=== PATIENT | male | born 1955 | race Caucasian/White ===

== ENCOUNTER → 2022-11-17 12:39 | Outpatient (CLI) | payer MEDICARE, SELFPAY ==
--- NOTE | 2022-11-17 12:42 | DI.RAD.S_ITS ---
PROCEDURE: XR KNEE LT 3V INDICATIONS: left knee pain TECHNIQUE: 3 views of the knee were acquired. COMPARISON: None. FINDINGS: Bones: No fractures or dislocations. No suspicious bony lesions. Severe left knee tricompartmental osteoarthritis with osseous hypertrophy and joint space narrowing. Soft tissues: No joint effusion. No suspicious soft tissue calcifications. IMPRESSION: Severe left knee tricompartmental osteoarthritis. Dictated by: Helen Burton MD, PhD on 11/17/2022 at 15:03 Approved by: Helen Burton MD, PhD on 11/17/2022 at 15:03
== END ==
PROVIDERS: Referring Provider Anesthesiology; Visit Provider Anesthesiology
DX: M17.12 Unilateral primary osteoarthritis, left knee (principal); M25.562 Pain in left knee; G89.29 Other chronic pain
CPT/HCPCS: 73562; 99214

== ENCOUNTER → 2023-02-15 11:04 | Outpatient (CLI) | payer OTHER, SELFPAY ==
--- NOTE | 2023-02-15 | DI.RAD.S_ITS ---
PROCEDURE: XR LUMBAR SPINE 2-3V INDICATIONS: BACK PAIN TECHNIQUE: 3 views of the lumbar spine were acquired. COMPARISON: None. FINDINGS: Bones: 5 [id number] vertebrae are present. No acute fracture or traumatic subluxation. Moderate degenerative changes at L5-S1 with endplate sclerosis, osteophytosis and facet arthropathy. Remainder of the spine demonstrates mild multilevel degenerative changes. Grade 1 anterolisthesis of L4 on L5 of approximately 3 mm. No suspicious bony lesions. Soft tissues: Overlying bowel gas pattern is normal. No suspicious soft tissue calcifications. Scattered surgical clips. IMPRESSION: 1. No acute bony abnormality. 2. Multilevel degenerative changes of the spine, moderate at L5-S1. Dictated by: Robb Oh M.D. on 02/15/2023 at 17:38 Approved by: Robb Oh M.D. on 02/15/2023 at 17:40
== END ==
LOC: RAD 11:07
PROVIDERS: Referring Provider Internal Medicine Cardiovascular Disease; Visit Provider Internal Medicine Cardiovascular Disease
DX: M47.817 Spondylosis without myelopathy or radiculopathy, lumbosacral region (principal); M47.816 Spondylosis without myelopathy or radiculopathy, lumbar region; M54.50 Low back pain, unspecified
CPT/HCPCS: 72100

== ENCOUNTER → 2024-10-18 09:33 | Outpatient (CLI) | payer MEDICARE, SELFPAY ==
[2024-10-18 10:58] LABS: Alanine Aminotransferase 13 IU/L (<50); Albumin 3.8 g/dL (3.5-5.0); Albumin Globulin Ratio 1.2 (1.0-2.8); Alkaline Phosphatase 128 U/L (38-126); Blood Urea Nitrogen 12 mg/dL (9-20); Calcium 8.7 mg/dL (8.4-10.2); Carbon Dioxide 27 mmol/L (22-32); Chloride 104 mmol/L (98-107); Cholesterol 152 mg/dL (140-199); Estimated Glomerular Filt Rate > 60 mL/min (>60); Globulin 3.1 g/dL (1.7-4.1); Glucose 90 mg/dL (70-99); HDL Cholesterol 52 mg/dL (40-60); HEMOLYSIS < 15 (0-50); Sodium 140 mmol/L (137-145); Total Protein 6.9 g/dL (6.3-8.2); Triglycerides 69 mg/dL (35-150)
[2024-10-18 11:05] LABS: Potassium 4.1 mmol/L (3.4-5.1)
== END ==
PROVIDERS: PCP Internal Medicine; Referring Provider Internal Medicine; Visit Provider Internal Medicine
DX: I10 Essential (primary) hypertension (principal); Z12.5 Encounter for screening for malignant neoplasm of prostate; E78.2 Mixed hyperlipidemia; N40.1 Benign prostatic hyperplasia with lower urinary tract symptoms; N13.8 Other obstructive and reflux uropathy
CPT/HCPCS: 36415; 80053; 80061; G0103